=== PATIENT | male | born 1965 | race Caucasian/White ===

== ENCOUNTER 2024-07-12 08:07 | Outpatient (REF) | payer OTHER, SELFPAY ==
[2024-07-12 18:06] LABS: MANUAL DIFF FLAG NO
[2024-07-12 18:09] LABS: Basophils Percent Auto 0.6 % (0-2); Eosinophils Absolute Auto 0.1 X10*3/uL (0.0-0.4); Eosinophils Percent Auto 1.7 % (0-4); Hematocrit 40.1 % (42.0-52.0); Hemoglobin 13.3 g/dl (14.0-18.0); Imm Gran Abs Auto 0.02 X10*3/uL (0.00-0.03); Imm Gran Pct Auto 0.3 % (0.0-0.4); Lymphocytes Absolute Auto 0.6 X10*3/uL (1.2-4.9); Lymphocytes Percent Auto 9.9 % (20-40); Mean Corpuscular HGB Conc 33.2 g/dl (31.0-36.0); Mean Corpuscular Hemoglobin 31.6 pg (27.0-33.0); Mean Corpuscular Volume 95.2 fL (80.0-98.0); Mean Platelet Volume 10.2 fL (9.4-12.4); Monocytes Absolute Auto 0.5 X10*3/uL (0.1-1.2); Monocytes Percent Auto 7.6 % (2-11); Neutrophils Absolute Auto 5.1 x10*3/uL (2.0-8.3); Neutrophils Percent Auto 79.9 % (45-73); Platelet Count 212 X10*3/uL (160-400); Red Blood Count 4.21 X10*6/uL (4.60-5.80); Red Cell Distribution Width 13.2 % (11.0-16.0); White Blood Count 6.4 X10*3/uL (4.8-10.8)
[2024-07-12 18:27] LABS: Alanine Aminotransferase 22 U/L (0-40); Aspartate Amino Transferase 26 U/L (5-37); C Reactive Protein 0.12 mg/dL (< or = 0.50); Estimated Glomerular Filt Rate > 60
[2024-07-12 19:24] LABS: Erythrocyte Sedimentation Rate 6 MM/HR (0-15)
[2024-07-13 09:38] LABS: HBS Num1 0.01 mIU/mL (0-7.99); HBc Num1 0.07 S/CO (0.00-0.79); HBsAGNum1 0.43 S/CO (0.00-0.99); Hepatitis B Core Antibody Nonreactive (Nonreactive); Hepatitis B Surface Antigen Negative (Negative); ~Hepatitis B Surface Antibody NONREACTIVE (Nonreactive); ~Hepatitis C Antibody Nonreactive (Nonreactive)
[2024-07-15 14:33] LABS: TS Negative Control Passed; TS Panel A 0; TS Panel B 0; TS Positive Control Passed; TSpotTB Negative (Negative)
== END 2024-07-12 08:08 | disposition home or self-care (01) ==
LOC: HO.HKASLDS 08:07
PROVIDERS: Visit Provider Internal Medicine Rheumatology
DX: M35.3 Polymyalgia rheumatica (principal); Z79.60 Long term (current) use of unspecified immunomodulators and immunosuppressants
CPT/HCPCS: 36415; 82565; 84450; 84460; 85025; 85652; 86140; 86481; 86704; 86706; 86803; 87340

== ENCOUNTER 2024-07-12 08:07 | Outpatient (AMB) | payer OTHER, SELFPAY ==
--- NOTE | 2024-07-12 08:21 | MHC.OFFVIS ---
Vital Signs 07/12/24 08:22 Height 5 ft 11 in Weight 163 lb 2.273 oz BMI 22.8 BP 120/86 Blood Pressure Location Lt brachial Position Sitting Pulse 69 Pulse Source Pulse Oximeter Pulse Oximetry (%) 96 Oxygen Delivery Method Room Air Intake Visit Reasons: Arthralia Accompanied by: Self / Same As Patient Allergies No Known Allergies Allergy (Verified 07/12/24 08:24) HPI HPI Arthralia: Details: He is doing well. No new joint stiffness. No joint swelling. Denies trigger finger. He is on prednisone 5 mg daily, which he has been taking for a month. [facility] and reports labs were fine. He denies any hip pain. [facility] Medical History (Updated 07/12/24 @ 08:52 by Josiah Gibbons MD) Polymyalgia Arthropathy of left knee Surgical History (Updated 07/11/24 @ 08:42 by Mindy Guadarrama BEE WORKER) Hx of tonsillectomy Physical Exam Vital Signs: Last Vital Signs Pulse 69 07/12/24 08:22 BP 120/86 07/12/24 08:22 Pulse Ox 96 07/12/24 08:22 Oxygen Delivery Method Room Air 07/12/24 08:22 BMI result Body Mass Index 22.8 Const Other: General: Comfortable CVS: RRR Respiratory: clear to auscultation bilaterally. Good respiratory effort Skin: No lesions seen MSK: No tenderness of any joints. No synovitis. Good range of motion of upper extremities and lower extremities. Assessment & Plan Assessment & Plan (1) PMR (polymyalgia rheumatica): Comment: He had a relapse 2023 when methotrexate dose was reduced to 10 mg daily. He was treated with prednisone 10 mg daily taper 1 mg every month. He is currently on prednisone 5 mg daily. He is doing well without any symptoms. Code(s): M35.3 - Polymyalgia rheumatica Category: Medical Plan: Decrease prednisone 1 mg every month Labs for disease and drug monitoring ordered Continue methotrexate 12.5 mg once weekly Continue folic acid 1 mg daily Return to clinic in 3 months He will contact the office when he needs refills (2) Calcium pyrophosphate deposition disease (CPPD): Comment: Affecting left knee. Controlled on colchicine Code(s): M11.20 - Other chondrocalcinosis, unspecified site Category: Medical Plan: Continue colchicine 0.6 mg daily Continue methotrexate 12 point mg once weekly Return to clinic in 3 months He will contact office when he needs refills Orders: Orders Creatinine Today Z79.60 - predatory animal exterminator (current) use of unspecified immunomodulators and immunosuppressants Erythrocyte Sedimentation Rate Today M35.3 - Polymyalgia rheumatica Hepatitis B,C Profile Today M35.3 - Polymyalgia rheumatica T Spot TB Today M35.3 - Polymyalgia rheumatica Complete Blood Count Auto Diff Today Z79.60 - detention (current) use of unspecified immunomodulators and immunosuppressants Alanine Aminotransferase Today Z79.60 - detention (current) use of unspecified immunomodulators and immunosuppressants Aspartate Amino Transferase Today Z79.60 - detention (current) use of unspecified immunomodulators and immunosuppressants C Reactive Protein Today M35.3 - Polymyalgia rheumatica Medications: New prednisone Take 4 tablets daily for 1 month, 3 tablets daily for 1 month, 2 tablets daily for 1 month 1 mg PO DIRECTED 270 tabs 0RF Coding Level of Care Code Est Pt Level 4 (40070) Complex EM visit Add On G2211 Diagnoses PMR (polymyalgia rheumatica) M35.3 Calcium pyrophosphate deposition disease (CPPD) M11.20
[2024-07-12 08:22] VITALS: BP 120/86; PULSE 69; O2SAT 96; BMI 22.8
== END 2024-07-12 08:45 | disposition home or self-care (01) ==
PROVIDERS: Visit Provider Internal Medicine Rheumatology
DX: M35.3 Polymyalgia rheumatica (principal); M11.20 Other chondrocalcinosis, unspecified site
CPT/HCPCS: 99214

== ENCOUNTER 2024-09-15 10:19 | Outpatient (REF) | payer OTHER, SELFPAY ==
--- OUTSIDE RECORDS SUMMARY | 2024-09-15 12:48 | XMS_ITS | Clinical Summary ---
Author Organization [address] [place] [address] Address [address] [place] [address] Phone Care Team Providers Care Television News Reporter Name Role Phone Amrik Maynard MD Primary Care Provider [phone] Allergies No known active allergies Medications multivitamin tablet Take 1 tablet by mouth 1 (one) time each day. Active colchicine (COLCRYS) 0.6 mg tablet Take 1 tablet (0.6 mg total) by mouth 1 (one) time each day. Active carvediloL (COREG) 6.25 mg tablet Take 1 tablet (6.25 mg total) by mouth 2 (two) times a day with meals. Active omega 1-bmb-tdc-fish oil (Fish OiL) 1,000 (120-180) mg capsule Take 2 capsules (2,000 mg total) by mouth 1 (one) time each day. Active folic acid (FOLVITE) 1 mg tablet Take 1 tablet (1 mg total) by mouth 1 (one) time each day. Active methotrexate 2.5 mg tablet Take 3 tablets (7.5 mg total) by mouth 1 (one) time per week Follow directions carefully, and ask to explain any part you do not understand. Take exactly as directed. Active rosuvastatin (CRESTOR) 5 mg tablet Take 1 tablet (5 mg total) by mouth 1 (one) time each day. Active Encounters Date Type Department Care Team Description 07/08/2024 Telephone [address]astroenterology [address] [place] [phone] Ara Gunn MD SPECIAL PROCEDURE from Last 3 Months Social History Tobacco Use Types Packs/Day Years Used Date Smoking Tobacco: Never Assessed Sex and Gender Information Value Date Recorded Sex Assigned at Not on file Legal Sex Male 3:39 AM EST Gender Identity Not on file Sexual Orientation Not on file Plan of Treatment Upcoming Encounters Date Type Department Care Team (Late st Contact Info) Description 11/15/2024 1:30 PM EDT Appointment [facility] Endoscopy [address] [place] [phone] Kenrick Prater MD [address] [facility] [address] [place] [address] Health Maintenance Due Date Last Done Comments COVID-19 Vaccine (#1) 10/28/1968 DTaP,Tdap,and Td Vaccines (1 - Tdap) 10/28/1982 Pneumococcal Vaccine: 50+ Ye ars (1 of 1 - PCV) 10/28/2013 Zoster Vaccines (1 of 2) 10/28/2013 Influenza Vaccine (#1) 2024 Cholesterol Screening (Lipid Panel) 07/08/2024 Colorectal Cancer Screening: Colonoscopy 07/08/2024 Depression Screening 07/08/2024 HIV Screening 07/08/2024 Hepatitis C Screening 07/08/2024 Social Influencers of Health Screening 07/08/2024 RSV Immunization Patients 60 + Years Old (1 - 1-dose 75+ series) 10/28/2038 HIB Vaccines Aged Out No longer eligi ble based on patient's age to complete this topic HPV Vaccines Aged Out No longer eligi ble based on patient's age to complete this topic Hepatitis A Vaccines Aged Out No long er eligible based on patient's age to complete this topic Hepatitis B Vaccines Aged Out No long er eligible based on patient's age to complete this topic IPV Vaccines Aged Out No longer eligi ble based on patient's age to complete this topic MMR Vaccines Aged Out No longer eligi ble based on patient's age to complete this topic Meningococcal ACWY Vaccine Aged Out N o longer eligible based on patient's age to complete this topic Meningococcal B Vacine Aged Out No lo nger eligible based on patient's age to complete this topic Pneumococcal Vaccine: Pediat rics (0 to 5 Years) and At-Risk Patients (6 to 64 Years) Aged Out No longer eligible b ased on patient's age to complete this topic RSV Immunization Patients Un humberto 20 months Aged Out No longer eligible b ased on patient's age to complete this topic Varicella Vaccines Aged Out No longer eligible based on patient's age to complete this topic Insurance [employer] Care Teams Television News Reporter Relationship Specialty Start Date End Date Amrik Maynard MD [address] [place] [address] PCP - General Internal Medicine 05/24/19
[2024-09-15 18:02] LABS: C Reactive Protein 0.93 mg/dL (< or = 0.50)
[2024-09-15 18:52] LABS: Erythrocyte Sedimentation Rate 12 MM/HR (0-15)
== END 2024-09-15 10:20 | disposition home or self-care (01) ==
LOC: HO.HKASLDS 10:19
PROVIDERS: Visit Provider Internal Medicine Rheumatology
DX: M35.3 Polymyalgia rheumatica (principal)
CPT/HCPCS: 36415; 85652; 86140

== ENCOUNTER 2024-10-11 08:15 | Outpatient (AMB) | payer OTHER, SELFPAY ==
--- NOTE | 2024-10-11 08:18 | A.OFFVIS_ITS ---
Vital Signs 10/11/24 08:20 Height 5 ft 11 in Weight 167 lb 1.766 oz BMI 23.3 BP 122/84 Blood Pressure Location Lt brachial Position Sitting Pulse 76 Pulse Source Pulse Oximeter Pulse Oximetry (%) 98 Oxygen Delivery Method Room Air Intake Visit Reasons: 3 mnts Intake Note: Patient present today for Arthralgia. Allergies No Known Allergies Allergy (Verified 10/11/24 08:19) HPI HPI 3 mnts: Details: He started experiencing right upper arm pain that kept him up at night. Since increasing prednisone from 3 mg daily to 8 mg daily most of the pain has subsided. His granddaughter had influenza a and he had mild URI symptoms. Denies GCA symptoms, back pain, thigh pain, hip pain, constitutional symptoms. He feels well and he is able to return back to his exercise routine at the gym. COUNTS INCLUDE 234 BEDS AT THE [facility] Medical History Polymyalgia Arthropathy of left knee Surgical History Hx of tonsillectomy Review of Systems Const All systems reviewed & are unremarkable except as noted in HPI and below Physical Exam Vital Signs: Last Vital Signs Pulse 76 10/11/24 08:20 BP 122/84 10/11/24 08:20 Pulse Ox 98 10/11/24 08:20 Oxygen Delivery Method Room Air 10/11/24 08:20 BMI result Body Mass Index 23.3 Const Other: General: Comfortable CVS: RRR Respiratory: clear to auscultation bilaterally. Good respiratory effort Skin: No lesions seen MSK: No tenderness of any joints. No synovitis. Tender right biceps muscle and tendon. Normal range of motion of upper extremities and lower extremities. Assessment & Plan Assessment & Plan (1) PMR (polymyalgia rheumatica): Comment: When prednisone was reduced to 3 mg daily he had relapse with right biceps tendon pain and mild elevation in CRP. He had URI prior to onset of symptoms, which may have triggered PMR. He has minimal residual pain that is tolerable. I am checking inflammatory markers this visit. Rheumatology history: Diagnosed PMR 04/14/2018 with prednisone tapered off 08/2019. He had relapsed while on low-dose prednisone 10 mg daily. During PMR management he active pseudogout affecting left knee and was started on colchicine and methotrexate 12.5 mg once weekly. In 2023 methotrexate dose was slowly reduced to 7.5 mg once weekly and he relapsed with PMR and was restarted on prednisone 01/2024. Code(s): M35.3 - Polymyalgia rheumatica Category: Medical Plan: Continue prednisone 8 mg daily until ESR and CRP results are back. We will communicate with patient about inflammatory marker results and next steps with prednisone Continue methotrexate 15 mg once weekly Continue folic acid 1 mg daily Labs for drug monitoring on high-risk medication due today Return to clinic in 3 months (2) Calcium pyrophosphate deposition disease (CPPD): Comment: Affecting left knee. Controlled on colchicine Code(s): M11.20 - Other chondrocalcinosis, unspecified site Category: Medical Plan: Continue colchicine 0.6 mg daily Continue methotrexate 12.5 mg once weekly Continue folic acid 1 mg daily Labs for drug monitoring on high-risk medication due Return to clinic in 3 months Orders: Orders Erythrocyte Sedimentation Rate Today Z79.899 - Other correction (current) drug therapy Alanine Aminotransferase Today Z79.60 - director long term care (current) use of unspecified immunomodulators and immunosuppressants Aspartate Amino Transferase Today Z79.60 - director long term care (current) use of unspecified immunomodulators and immunosuppressants Complete Blood Count Auto Diff Today Z79.60 - director long term care (current) use of unspecified immunomodulators and immunosuppressants Creatinine Today Z79.60 - director long term care (current) use of unspecified immunomodulators and immunosuppressants C Reactive Protein Today M35.3 - Polymyalgia rheumatica Medications: Refilled folic acid 1 mg PO DAILY 90 tabs 3RF Coding Level of Care Code Est Pt Level 4 (26582) Complex EM visit Add On G2211 Diagnoses PMR (polymyalgia rheumatica) M35.3 Calcium pyrophosphate deposition disease (CPPD) M11.20
[2024-10-11 08:20] VITALS: BP 122/84; PULSE 76; O2SAT 98; BMI 23.3
--- OUTSIDE RECORDS SUMMARY | 2024-10-11 08:29 | XMS_ITS | Clinical Summary ---
Author Organization [address] [facility] Address [address] [place] [address] Phone Care Team Providers Care Tree Feller Name Role Phone Amrik Maynard MD Primary Care Provider [phone] Allergies No known active allergies Medications multivitamin tablet Take 1 tablet by mouth 1 (one) time each day. Active colchicine (COLCRYS) 0.6 mg tablet Take 1 tablet (0.6 mg total) by mouth 1 (one) time each day. Active carvediloL (COREG) 6.25 mg tablet Take 1 tablet (6.25 mg total) by mouth 2 (two) times a day with meals. Active omega 3-iop-yau-fish oil (Fish OiL) 1,000 (120-180) mg capsule [...] Encounters Date Type Department Care Team Description 09/27/2024 Lab Requisition [facility] [address] [facility] [place] [phone] González Cerrato MD Elevated prostate specific antigen (PSA) from Last 3 Months Social History Tobacco Use Types Packs/Day Years Used Date Smoking Tobacco: Never Assessed Sex and Gender Information Value Date Recorded Sex Assigned at Not on file Legal Sex Male 3:39 AM EST Gender Identity Not on file Sexual Orientation Not on file Plan of Treatment Upcoming Encounters Date Type Department Care Team ([facility] st Contact Info) Description 11/15/2024 1:30 PM EDT Appointment [facility] Endoscopy [address] [place] [phone] Kenrick Prater MD 175 [facility] [address] [place] [address] Health Maintenance Due Date Last Done Comments [...] Influencers of Health Screening 07/08/2024 RSV Immunization Adult Patie nts (1 - 1-dose 75+ series) 10/28/2038 HIB [...] age to complete this topic Meningococcal B Vaccine Aged Out No l onger eligible based on patient's age to complete [...] on patient's age to complete this topic Procedures Procedure Name Priority Date/Time Associated Diagnosis Comments AP OUTSIDE CONSULT Routine 09/26/2024 Elevated prostate specific antigen (PSA) from Last 3 Months Results * Anatomic pathology outside consult (09/26/2024) Final Diagnosis A. Prostate, Left [place] Biopsy: Acinar adenocarcinoma, conventional (usual) type, Francisco score 3 + 3 = 6 (Grade group 1). The carcinoma involves approximately 25-30% of the tissue submitted for review and spans approximately 3-4 mm in greatest dimension in a single core. B. Prostate, Left Lateral [place] Biopsy: Acinar adenocarcinoma, conventional (usual) type, Willard score 3 + 3 = 6 (Grade group 1). The carcinoma involves 30-35% of the tissue submitted for review and spans approximately 4 mm in greatest dimension in a single core. Perineural invasion is present. C. Prostate, Left Middle Middle Biopsy: Acinar adenocarcinoma, conventional (usual) type, Willard score 3 + 3 = 6 (Grade group 1). The carcinoma involves 50% of the tissue submitted for review and spans approximately 8 mm in greatest dimension in a single core (discontinuous foci). Perineural invasion is present. D. Prostate, Left Lateral Middle Biopsy: Acinar adenocarcinoma, conventional (usual) type, Francisco score 3 + 4 = 7 (Grade group 2). Willard pattern 4 comprises approximately 10% of the carcinoma including few cribriform glands. The carcinoma involves 30% of the tissue submitted for review and spans approximately 3 mm in greatest dimension in a single core. Prostatic intraepithelial neoplasia, high grade (HG PIN). Note: A multiplex immunohistochemical study including AMACR, high molecular weight cytokeratin and p63 was performed and shows that the glands of interest exhibit apical granular cytoplasmic expression of AMACR and lack an associated basal cell layer, supporting a diagnosis of prostatic adenocarcinoma. The immunohistochemical study also highlights few cribriform glands, supporting a component of Francisco pattern 4. E. Prostate, Left Middle Base Biopsy: Acinar adenocarcinoma, conventional (usual) type, Francisco score 3 + 4 = 7 (Grade group 2). Willard pattern 4 comprises approximately 20% of the carcinoma including a rare cribriform gland. The carcinoma involves 40-45% of the tissue submitted for review and spans approximately 8 mm in greatest dimension in a single core. Prostatic intraepithelial neoplasia, high grade (HG PIN). Note: A multiplex immunohistochemical study including AMACR, high molecular weight cytokeratin and p63 was performed and shows that the glands of interest exhibit apical granular cytoplasmic expression of AMACR and lack an associated basal cell layer, supporting a diagnosis of prostatic adenocarcinoma. The immunohistochemical study also highlights few glands with cribriform spaces and glomeruloid glands, supporting a component of Willard pattern 4. F. Prostate, Left Lateral Base Biopsy: Acinar adenocarcinoma, conventional (usual) type, Willard score 3 + 4 = 7 (Grade group 2). Francisco pattern 4 comprises approximately 20% of the carcinoma including rare cribriform glands. The carcinoma involves 30% of the tissue submitted for review and spans approximately 3-4 mm in greatest dimension in a single core. Intraductal carcinoma of the prostate (IDC-P). Note: A multiplex immunohistochemical study including AMACR, high molecular weight cytokeratin and p63 was performed and shows that the glands of interest exhibit apical granular cytoplasmic expression of AMACR and lack an associated basal cell layer, supporting a diagnosis of prostatic adenocarcinoma. The immunohistochemical study also highlights few glands with cribriform spaces and glomeruloid glands, supporting a component of Willard pattern 4. A large, expanded gland with increased cellularity, cytologic atypia and focal necrosis is noted, which shows an associated basal cell layer, supporting a diagnosis of IDC-P. G. Prostate, Left Peripheral Zone Mid Biopsy: Acinar adenocarcinoma, conventional (usual) type, Willard score 3 + 3 = 6 (Grade group 1). The carcinoma involves two of three tissue cores, involves approximately 25% of the tissue submitted for review and spans approximately 3 mm in greatest dimension in a single core. H. Prostate, Right [place] Biopsy: Benign prostate tissue. I. Prostate, Right Lateral [place] Biopsy: Benign prostate tissue. J. Prostate, Right Middle Middle Biopsy: Benign prostate tissue. K. Prostate, Right Lateral Middle Biopsy: Benign prostate tissue. L. Prostate, Right Middle Base Biopsy: Acinar adenocarcinoma, conventional (usual) type, Francisco score 3 + 3 = 6 (Grade group 1). The carcinoma involves less than 10% of the tissue submitted for review and spans less than 1 mm in greatest dimension in a single core. M. Prostate, Right Lateral Base Biopsy: Benign prostate tissue. 5 4:07 PM EDT [facility] Clinical Information Elevated PSA PSA: 4.3 (07/08/24) [id number] 5 4:07 PM EDT [facility] Gross Description A. Prostate, Left [place] Biopsy: Received, properly labeled, are two H and E stained slides and two unstained slides. B. Prostate, Left Lateral [place] Biopsy: Received, properly labeled, are two H and E stained slides and two unstained slides. C. Prostate, Left Middle Middle Biopsy: Received, properly labeled, are two H and E stained slides and two unstained slides. D. Prostate, Left Lateral Middle Biopsy: Received, properly labeled, are two H and E stained slides and two unstained slides. E. Prostate, Left Middle Base Biopsy: Received, properly labeled, are two H and E stained slides and two unstained slides. F. Prostate, Left Lateral Base Biopsy: Received, properly labeled, are two H and E stained slides and two unstained slides. G. Prostate, Left Peripheral Zone Mid Biopsy: Received, properly labeled, are two H and E stained slides and two unstained slides. H. Prostate, Right [place] Biopsy: Received, properly labeled, are two H and E stained slides and two unstained slides. I. Prostate, Right Lateral [place] Biopsy: Received, properly labeled, are two H and E stained slides and two unstained slides. J. Prostate, Right Middle Middle Biopsy: Received, properly labeled, are two H and E stained slides and two unstained slides. K. Prostate, Right Lateral Middle Biopsy: Received, properly labeled, are two H and E stained slides and two unstained slides. L. Prostate, Right Middle Base Biopsy: Received, properly labeled, are two H and E stained slides and two unstained slides. M. Prostate, Right Lateral Base Biopsy: Received, properly labeled, are two H and E stained slides and two unstained slides. /al 5 4:07 PM EDT [facility] ([facility] Disclaimer Unless otherwise specified, all tissue is 10% NB formalin fixed and paraffin embedded. Technical pathology services provided by [facility] at [address] [place] [address] [address], [place] [address] (CLIA #[id number]/Mary Petersen MD, Binitrotoluene Operator) 4:07 PM EDT [facility]) [facility] Tissue Prostate / Unknown 09/26/20242024 12:06 PM EDT Tissue specimen (specimen) Prostate / Unknown 09/26/2024 09/27/2024 12 :09 PM EDT Tissue specimen (specimen) Prostate / Unknown 09/26/2024 09/27/2024 12 :09 PM EDT Tissue specimen (specimen) Prostate / Unknown 09/26/2024 09/27/2024 12 :09 PM EDT Tissue specimen (specimen) Prostate / Unknown 09/26/2024 09/27/2024 12 :09 PM EDT Tissue specimen (specimen) Prostate / Unknown 09/26/2024 09/27/2024 12 :09 PM EDT Tissue specimen (specimen) Prostate / Unknown 09/26/2024 09/27/2024 12 :09 PM EDT Tissue specimen (specimen) Prostate / Unknown 09/26/2024 09/27/2024 12 :09 PM EDT Tissue specimen (specimen) Prostate / Unknown 09/26/2024 09/27/2024 12 :09 PM EDT Tissue specimen (specimen) Prostate / Unknown 09/26/2024 09/27/2024 12 :09 PM EDT Tissue specimen (specimen) Prostate / Unknown 09/26/2024 09/27/2024 12 :09 PM EDT Tissue specimen (specimen) Prostate / Unknown 09/26/2024 09/27/2024 12 :09 PM EDT Tissue specimen (specimen) Prostate / Unknown 09/26/2024 09/27/2024 12 :09 PM EDT us González Cerrato MD LAB PATHOLOGY ORDERABLES Final R esult [facility] ([facility]) [facility] [address] [place] [address], [place] [phone] from Last 3 Months Insurance [employer] Care Teams Tree Feller Relationship Specialty Start Date End Date Amrik Maynard MD [address] [place] [phone] PCP - General Internal Medicine 05/24/19
--- OUTSIDE RECORDS SUMMARY | 2024-10-11 08:29 | XMS_ITS | Encounter Summary ---
Author Organization [facility] Address [address] [place] [address] Care Team Providers Care Forming Machine Upkeep Mechanic Name Role Phone Amrik Maynard MD Primary Care Provider [phone] Encounter Details Date Type Department Care Team (Late Contact Info) Description 09/27/2024 Lab Requisition [facility] - Main Lab 299 [facility] [place] [address] González Cerrato MD 100 [facility] 120 [place] [address] Elevated prostate specific antigen (PSA) Social History Tobacco Use Types Packs/Day Years Used Date Smoking Tobacco: Never Assessed Sex and Gender Information Value Date Recorded Sex Assigned at Not on file Legal Sex Male 3:39 AM EST Gender Identity Not on file Sexual Orientation Not on file documented as of this encounter Plan of Treatment Upcoming Encounters Date Type Department Care Team (Late Contact Info) Description 11/15/2024 1:30 PM EDT Appointment [facility] Endoscopy [address] [place] [phone] Kenrick Prater MD 175 [facility] 200 [place] [address] documented as of this encounter Procedures Procedure Name Priority Date/Time Associated Diagnosis Comments AP OUTSIDE CONSULT Routine 09/26/2024 Elevated prostate specific antigen (PSA) documented in this encounter Results * Anatomic pathology outside consult (09/26/2024) Final Diagnosis A. Prostate, Left Middle [place] Biopsy: Acinar adenocarcinoma, conventional (usual) type, Francisco score 3 + 3 = 6 (Grade group 1). The carcinoma involves approximately 25-30% of the tissue submitted for review and spans approximately 3-4 mm in greatest dimension in a single core. B. Prostate, Left Lateral [place] Biopsy: Acinar adenocarcinoma, conventional (usual) type, Francisco score 3 + 3 = 6 (Grade group 1). The carcinoma involves 30-35% of the tissue submitted for review and spans approximately 4 mm in greatest dimension in a single core. Perineural invasion is present. C. Prostate, Left Middle [place] Biopsy: Acinar adenocarcinoma, conventional (usual) type, [place] score 3 + 3 = 6 (Grade group 1). The carcinoma involves 50% of the tissue submitted for review and spans approximately 8 mm in greatest dimension in a single core (discontinuous foci). Perineural invasion is present. D. Prostate, Left Lateral [place] Biopsy: Acinar adenocarcinoma, conventional (usual) type, [place] score 3 + 4 = 7 (Grade group 2). [place] pattern 4 comprises approximately 10% of the [...] few cribriform glands, supporting a component of [place] pattern 4. E. Prostate, Left Middle [place] Biopsy: Acinar adenocarcinoma, conventional (usual) type, [place] score 3 + 4 = 7 (Grade group 2). [place] pattern 4 comprises approximately 20% of the [...] and glomeruloid glands, supporting a component of [place] pattern 4. F. Prostate, Left Lateral [place] Biopsy: Acinar adenocarcinoma, conventional (usual) type, [place] score 3 + 4 = 7 (Grade group 2). [place] pattern 4 comprises approximately 20% of the [...] and glomeruloid glands, supporting a component of Francisco pattern 4. A large, expanded gland with increased cellularity, cytologic atypia and focal necrosis is noted, which shows an associated basal cell layer, supporting a diagnosis of IDC-P. G. Prostate, Left Peripheral Zone Mid Biopsy: Acinar adenocarcinoma, conventional (usual) type, Francisco score 3 + 3 = 6 (Grade group 1). The carcinoma involves two of three tissue cores, involves approximately 25% of the tissue submitted for review and spans approximately 3 mm in greatest dimension in a single core. H. Prostate, Right Middle [place] Biopsy: Benign prostate tissue. I. Prostate, Right Lateral [place] Biopsy: Benign prostate tissue. J. Prostate, Right [...] Benign prostate tissue. 5 4:07 PM EDT [facility] ([facility]) [facility] Clinical Information Elevated PSA PSA: 4.3 (07/08/24) [id number] 5 4:07 PM EDT [facility] ([facility]) [facility] Gross Description A. Prostate, Left Middle [place] Biopsy: Received, properly labeled, are two H and E stained slides and two unstained slides. B. Prostate, Left Lateral [place] Biopsy: Received, properly labeled, are two H [...] two unstained slides. H. Prostate, Right Middle [place] Biopsy: Received, properly labeled, are two H and E stained slides and two unstained slides. I. Prostate, Right Lateral [place] Biopsy: Received, properly labeled, are two H [...] unstained slides. /al 5 4:07 PM EDT [facility] Disclaimer Unless otherwise specified, all tissue is 10% NB formalin fixed and paraffin embedded. Technical pathology services provided by [facility]rology at [address] [place] [address] [address], [place] [address] (CLIA #[id number]/Mary Petersen MD, Life Skills Coach) 5 4:07 PM EDT [facility] Tissue Prostate / Unknown 09/26/20242024 12:06 [...] MD LAB PATHOLOGY ORDERABLES Final R esult [facility] ([facility]) [facility] [address] [place] [address], documented in this encounter Visit Diagnoses Diagnosis Elevated prostate specific antigen (PSA) documented in this encounter Care Teams Forming Machine Upkeep Mechanic Relationship Specialty Start Date End Date Amrik Maynard MD [address] [place] [address] PCP - General Internal Medicine 05/24/19 documented as of this encounter
== END 2024-10-11 09:56 | disposition home or self-care (01) ==
LOC: HO.RHES 08:15
PROVIDERS: PCP Nurse Practitioner Gerontology; Visit Provider Internal Medicine Rheumatology
DX: M35.3 Polymyalgia rheumatica (principal); M11.20 Other chondrocalcinosis, unspecified site
CPT/HCPCS: 99214

== ENCOUNTER 2024-10-11 08:15 | Outpatient (REF) | payer OTHER, SELFPAY ==
--- OUTSIDE RECORDS SUMMARY | 2024-10-11 09:25 | XMS_ITS | Encounter Summary ---
Author Organization [facility] Address [address] [place] [address] Care Team Providers Care Court Usher Name Role Phone Amrik Maynard MD Primary Care Provider [phone]- [phone] Encounter Details Date Type Department Care Team (Late Contact Info) Description 09/27/2024 Lab Requisition [facility] - Main Lab 299 [facility] [place] [address] González Cerrato MD 100 [facility] 120 [place] [address] Elevated prostate specific antigen (PSA) Social History [...] Info) Description 11/15/2024 1:30 PM EDT Appointment [facility] Endoscopy [address] [place] [phone] Kenrick Prater MD 175 [facility] 200 [place] [address] documented as of this encounter Procedures Procedure Name Priority Date/Time Associated Diagnosis Comments AP OUTSIDE CONSULT Routine 09/26/2024 Elevated prostate specific antigen (PSA) documented in this encounter Results * Anatomic pathology outside consult (09/26/2024) Final Diagnosis A. Prostate, Left Middle [place] Biopsy: Acinar adenocarcinoma, conventional (usual) type, Francisco score 3 + 3 = 6 (Grade group 1). The carcinoma involves approximately 25-30% of the tissue submitted for review and spans approximately 3-4 mm in greatest dimension in a single core. B. Prostate, Left Lateral [place] Biopsy: Acinar adenocarcinoma, conventional (usual) type, Francisco score 3 + 3 = 6 (Grade group 1). The carcinoma involves 30-35% of the tissue submitted for review and spans approximately 4 mm in greatest dimension in a single core. Perineural invasion is present. C. Prostate, Left Middle Middle Biopsy: Acinar adenocarcinoma, conventional (usual) type, [place] score 3 + 3 = 6 (Grade group 1). The carcinoma involves 50% of the tissue submitted for review and spans approximately 8 mm in greatest dimension in a single core (discontinuous foci). Perineural invasion is present. D. Prostate, Left Lateral Middle Biopsy: Acinar adenocarcinoma, conventional (usual) type, [place] score 3 + 4 = 7 (Grade group 2). [place] pattern 4 comprises approximately 10% of the [...] few cribriform glands, supporting a component of [place] pattern 4. E. Prostate, Left Middle [place] Biopsy: Acinar adenocarcinoma, conventional (usual) type, [place] score 3 + 4 = 7 (Grade group 2). [place] pattern 4 comprises approximately 20% of the [...] and glomeruloid glands, supporting a component of [place] pattern 4. F. Prostate, Left Lateral [place] Biopsy: Acinar adenocarcinoma, conventional (usual) type, [place] score 3 + 4 = 7 (Grade group 2). [place] pattern 4 comprises approximately 20% of the [...] a single core. H. Prostate, Right Middle [place] Biopsy: Benign prostate tissue. I. Prostate, Right Lateral [place] Biopsy: Benign prostate tissue. J. Prostate, Right [...] Benign prostate tissue. 5 4:07 PM EDT [facility] ([facility]) [facility] Clinical Information Elevated PSA PSA: 4.3 (07/08/24) [id number] 5 4:07 PM EDT [facility] ([facility]) [facility] Gross Description A. Prostate, Left Middle [place] Biopsy: Received, properly labeled, are two H and E stained slides and two unstained slides. B. Prostate, Left Lateral [place] Biopsy: Received, properly labeled, are two H [...] two unstained slides. H. Prostate, Right Middle [place] Biopsy: Received, properly labeled, are two H and E stained slides and two unstained slides. I. Prostate, Right Lateral [place] Biopsy: Received, properly labeled, are two H [...] unstained slides. /al 5 4:[address] [facility] Disclaimer Unless otherwise specified, all tissue is 10% NB formalin fixed and paraffin embedded. Technical pathology services provided by [facility] at [address] [place] [address] [address], [place] [address] (CLIA #[id number]/Mary Petersen MD, Wet Process Assistant Head Miller) 5 4:[address] [facility] Tissue Prostate / Unknown 09/26/20242024 [...] MD LAB PATHOLOGY ORDERABLES Final R esult [facility] ([facility]) [facility] [address] [place] [address], documented in this encounter Visit Diagnoses Diagnosis Elevated prostate specific antigen (PSA) documented in this encounter Care Teams Court Usher Relationship Specialty Start Date End Date Amrik Maynard MD [address] [place] [address] PCP - General Internal Medicine 05/24/19 documented as of this encounter
--- OUTSIDE RECORDS SUMMARY | 2024-10-11 09:25 | XMS_ITS | Clinical Summary ---
Author Organization 175 [facility] Address [address] [place] [address] Phone Care Team Providers Care Celery Wrapper Name Role Phone Amrik Maynard MD Primary Care Provider [phone]- [phone] Allergies No known active allergies Medications multivitamin tablet Take 1 tablet by mouth 1 (one) time each day. Active colchicine (COLCRYS) 0.6 mg tablet Take 1 tablet (0.6 mg total) by mouth 1 (one) time each day. Active carvediloL (COREG) 6.25 mg tablet Take 1 tablet (6.25 mg total) by mouth 2 (two) times a day with meals. Active omega 2-nie-rir-fish oil (Fish OiL) 1,000 (120-180) mg capsule [...] Department Care Team Description 09/27/2024 Lab Requisition [facility] - Main Lab 299 [facility] [place] [address] González Cerrato MD Elevated prostate [...] Upcoming Encounters Date Type Department Care Team ([facility] st Contact Info) Description 11/15/2024 1:30 PM EDT Appointment [facility] Endoscopy [address] [place] [phone] Kenrick Prater MD 175 [facility] [place] [address] [place] [address] Health Maintenance Due Date Last Done Comments [...] (09/26/2024) Final Diagnosis A. Prostate, Left Middle [place] Biopsy: Acinar adenocarcinoma, conventional (usual) type, Francisco score 3 + 3 = 6 (Grade group 1). The carcinoma involves approximately 25-30% of the tissue submitted for review and spans approximately 3-4 mm in greatest dimension in a single core. B. Prostate, Left Lateral [place] Biopsy: Acinar adenocarcinoma, conventional (usual) type, [place] score 3 + 3 = 6 (Grade group 1). The carcinoma involves 30-35% of the tissue submitted for review and spans approximately 4 mm in greatest dimension in a single core. Perineural invasion is present. C. Prostate, Left Middle [place] Biopsy: Acinar adenocarcinoma, conventional (usual) type, [place] score 3 + 3 = 6 (Grade group 1). The carcinoma involves 50% of the tissue submitted for review and spans approximately 8 mm in greatest dimension in a single core (discontinuous foci). Perineural invasion is present. D. Prostate, Left Lateral [place] Biopsy: Acinar adenocarcinoma, conventional (usual) type, Francisco score 3 + 4 = 7 (Grade group 2). [place] pattern 4 comprises approximately 10% of the [...] + 4 = 7 (Grade group 2). [place] pattern 4 comprises approximately 20% of the [...] and glomeruloid glands, supporting a component of [place] pattern 4. F. Prostate, Left Lateral [place] Biopsy: Acinar adenocarcinoma, conventional (usual) type, [place] score 3 + 4 = 7 (Grade [...] and glomeruloid glands, supporting a component of [place] pattern 4. A large, expanded gland with increased cellularity, cytologic atypia and focal necrosis is noted, which shows an associated basal cell layer, supporting a diagnosis of IDC-P. G. Prostate, Left Peripheral Zone Mid Biopsy: Acinar adenocarcinoma, conventional (usual) type, [place] score 3 + 3 = 6 (Grade group 1). The carcinoma involves two of three tissue cores, involves approximately 25% of the tissue submitted for review and spans approximately 3 mm in greatest dimension in a single core. H. Prostate, Right Middle [place] Biopsy: Benign prostate tissue. I. Prostate, Right Lateral [place] Biopsy: Benign prostate tissue. J. Prostate, Right [...] Benign prostate tissue. 5 4:07 PM EDT [facility] Clinical Information Elevated PSA PSA: 4.3 (07/08/24) [id number] 5 4:07 PM EDT [facility] Gross Description A. Prostate, Left Middle [place] Biopsy: Received, properly labeled, are two H and E stained slides and two unstained slides. B. Prostate, Left Lateral [place] Biopsy: Received, properly labeled, are two H [...] two unstained slides. H. Prostate, Right Middle [place] Biopsy: Received, properly labeled, are two H and E stained slides and two unstained slides. I. Prostate, Right Lateral [place] Biopsy: Received, properly labeled, are two H [...] 5 4:07 PM EDT [facility] ([facility] Disclaimer Unless otherwise specified, all tissue is 10% NB formalin fixed and paraffin embedded. Technical pathology services provided by [facility] at [address] [place] [address] [address], [place] [address] (CLIA #[id number]/Mary Petersen MD, Dairy Helper) 4:07 PM EDT [facility]) [facility] Tissue Prostate / Unknown 09/26/20242024 12:06 [...] ORDERABLES Final R esult [facility] ([facility]) [facility] [address] [place] [address], [place] [phone] from Last 3 Months Insurance [employer] Care Teams Celery Wrapper Relationship Specialty Start Date End Date Amrik Maynard MD [address] [place] [address] PCP - General Internal Medicine 05/24/19
[2024-10-11 18:41] LABS: MANUAL DIFF FLAG NO
[2024-10-11 18:57] LABS: Basophils Percent Auto 0.4 % (0-2); Eosinophils Percent Auto 0.2 % (0-4); Hematocrit 38.9 % (42.0-52.0); Hemoglobin 12.7 g/dl (14.0-18.0); Imm Gran Abs Auto 0.04 X10*3/uL (0.00-0.03); Imm Gran Pct Auto 0.5 % (0.0-0.4); Lymphocytes Absolute Auto 0.7 X10*3/uL (1.2-4.9); Lymphocytes Percent Auto 8.7 % (20-40); Mean Corpuscular HGB Conc 32.6 g/dl (31.0-36.0); Mean Corpuscular Hemoglobin 30.8 pg (27.0-33.0); Mean Corpuscular Volume 94.2 fL (80.0-98.0); Mean Platelet Volume 10.2 fL (9.4-12.4); Monocytes Absolute Auto 0.4 X10*3/uL (0.1-1.2); Monocytes Percent Auto 4.5 % (2-11); Neutrophils Absolute Auto 7.1 x10*3/uL (2.0-8.3); Neutrophils Percent Auto 85.7 % (45-73); Platelet Count 220 X10*3/uL (160-400); Red Blood Count 4.13 X10*6/uL (4.60-5.80); Red Cell Distribution Width 12.9 % (11.0-16.0); White Blood Count 8.2 X10*3/uL (4.8-10.8)
[2024-10-11 19:05] LABS: Alanine Aminotransferase 27 U/L (0-40); Aspartate Amino Transferase 30 U/L (5-37); C Reactive Protein 0.18 mg/dL (< or = 0.50); Estimated Glomerular Filt Rate > 60
[2024-10-11 19:38] LABS: Erythrocyte Sedimentation Rate 7 MM/HR (0-15)
== END 2024-10-11 08:16 | disposition home or self-care (01) ==
LOC: HO.HKASLDS 08:15
PROVIDERS: PCP Nurse Practitioner Gerontology; Visit Provider Internal Medicine Rheumatology
DX: M35.3 Polymyalgia rheumatica (principal); Z79.899 Other long term (current) drug therapy; Z79.60 Long term (current) use of unspecified immunomodulators and immunosuppressants
CPT/HCPCS: 36415; 82565; 84450; 84460; 85025; 85652; 86140

== ENCOUNTER 2025-01-12 08:20 | Outpatient (AMB) | payer OTHER, SELFPAY ==
--- OUTSIDE RECORDS SUMMARY | 2025-01-12 08:28 | XMS_ITS | Encounter Summary ---
Author Organization [facility] Address [address] [place] [address] Care Team Providers Care Dyslexia Teacher Name Role Phone Sailaja Blackman WILLARD Primary Care Provider [phone] Encounter Details Date Type Department Care Team (Late st Contact Info) Description 09/27/2024 Lab Requisition [facility] - Main Lab 299 [facility] [place] [address] González Cerrato MD [address] [place] [address] [place] [address] Elevated prostate specific antigen (PSA) Social History Tobacco Use Types Packs/Day Years Used Date Smoking Tobacco: Never Assessed Sex and Gender Information Value Date Recorded Sex Assigned at Male 11/09/2024 12:07 PM EDT Legal Sex Male 3:39 AM EST Gender Identity Male 11/09/2024 12:07 PM EDT Sexual Orientation Straight 11/09/2024 12 :07 PM EDT documented as of this encounter Plan of Treatment Not on file documented as of this encounter Procedures Procedure Name Priority Date/Time Associated Diagnosis Comments AP OUTSIDE CONSULT Routine 09/26/2024 Elevated prostate specific antigen (PSA) documented in this encounter Results * Anatomic pathology outside consult (09/26/2024) Final Diagnosis A. Prostate, Left Middle [place] Biopsy: Acinar adenocarcinoma, conventional (usual) type, Francisco score 3 + 3 = 6 (Grade group 1). The carcinoma involves approximately 25-30% of the tissue submitted for review and spans approximately 3-4 mm in greatest dimension in a single core. B. Prostate, Left Lateral [place] Biopsy: Acinar adenocarcinoma, conventional (usual) type, Francisco [...] Middle Biopsy: Acinar adenocarcinoma, conventional (usual) type, [place] score 3 + 4 = 7 (Grade group 2). [place] pattern 4 comprises approximately 10% of the [...] Base Biopsy: Acinar adenocarcinoma, conventional (usual) type, [place] score 3 + 4 = 7 (Grade group 2). [place] pattern 4 comprises approximately 20% of the [...] and glomeruloid glands, supporting a component of [place] pattern 4. F. Prostate, Left Lateral [place] Biopsy: Acinar adenocarcinoma, conventional (usual) type, [place] score 3 + 4 = 7 (Grade group 2). [place] pattern 4 comprises approximately 20% of the [...] and glomeruloid glands, supporting a component of [place] pattern 4. A large, expanded gland with increased cellularity, cytologic atypia and focal necrosis is noted, which shows an associated basal cell layer, supporting a diagnosis of IDC-P. G. Prostate, Left Peripheral Zone [place] Biopsy: Acinar adenocarcinoma, conventional (usual) type, [place] score 3 + 3 = 6 (Grade group 1). The carcinoma involves two of three tissue cores, involves approximately 25% of the tissue submitted for review and spans approximately 3 mm in greatest dimension in a single core. H. Prostate, Right Middle [place] Biopsy: Benign prostate tissue. I. Prostate, Right Lateral [place] Biopsy: Benign prostate tissue. J. Prostate, Right Middle [place] Biopsy: Benign prostate tissue. K. Prostate, Right Lateral [place] Biopsy: Benign prostate tissue. L. Prostate, Right Middle [place] Biopsy: Acinar adenocarcinoma, conventional (usual) type, [place] score 3 + 3 = 6 (Grade group 1). The carcinoma involves less than 10% of the tissue submitted for review and spans less than 1 mm in greatest dimension in a single core. M. Prostate, Right Lateral [place] Biopsy: Benign prostate tissue. 5 4:07 PM EDT [facility] Clinical Information Elevated PSA PSA: 4.3 (07/08/24) [id number] 5 4:07 PM EDT [facility]) [facility] Gross Description A. Prostate, Left Middle [place] Biopsy: Received, properly labeled, are two H and E stained slides and two unstained slides. B. Prostate, Left Lateral [place] Biopsy: Received, properly labeled, are two H [...] two unstained slides. H. Prostate, Right Middle [place] Biopsy: Received, properly labeled, are two H and E stained slides and two unstained slides. I. Prostate, Right Lateral [place] Biopsy: Received, properly labeled, are two H [...] unstained slides. /al 5 4:07 PM EDT [facility] Disclaimer Unless otherwise specified, all tissue is 10% NB formalin fixed and paraffin embedded. Technical pathology services provided by [facility] at [address] [place] [address] [address], [place] [address] (CLIA #[id number]/Mary Petersen MD, Inside Channel Account Manager) 5 4:07 PM EDT [facility] Tissue Prostate / Unknown 09/26/20242024 [...] MD LAB PATHOLOGY ORDERABLES Final R esult [facility] [address] [place] [address], documented in this encounter Visit Diagnoses Diagnosis Elevated prostate specific antigen (PSA) documented in this encounter Care Teams Dyslexia Teacher Relationship Specialty Start Date End Date Sailaja Blackman NP [address] [facility] [address] PCP - General Internal Medicine 11/10/24 documented as of this encounter
--- NOTE | 2025-01-12 08:29 | A.OFFVIS_ITS ---
Vital Signs 01/12/25 08:31 Height 5 ft 11 in Weight 161 lb 13.109 oz BMI 22.6 BP 110/70 Blood Pressure Location Rt brachial Position Sitting Pulse 72 Pulse Source Pulse Oximeter Pulse Oximetry (%) 100 Oxygen Delivery Method Room Air Intake Visit Reasons: 3 months Intake Note: Follow up appt for pmr Allergies No Known Allergies Allergy (Verified 01/12/25 08:32) HPI HPI 3 months: Details: He feels well. No joint stiffness. No shoulder pain, hip pain thigh pain. He denies GCA symptoms. No recent infections. He was diagnosed with prostate cancer stage II. He is thinking about having the prostate cancer removed rather than going through radiation. He will be following up with the [facility]. No specific recommendations of methotrexate were given to patient due to cancer diagnosis. [facility] Medical History (Updated 01/12/25 @ 08:49 by Josiah Gibbons MD) Prostate cancer Polymyalgia Arthropathy of left knee Surgical History Hx of tonsillectomy Physical Exam Vital Signs: Last Vital Signs Pulse 72 01/12/25 08:31 BMI result Body Mass Index 22.6 Const Other: General: Comfortable CVS: RRR Respiratory: clear to auscultation bilaterally. Good respiratory effort Skin: No lesions seen MSK: No tenderness of any joints. No synovitis. Normal range of motion of upper extremities and lower extremities. Assessment & Plan Assessment & Plan (1) PMR (polymyalgia rheumatica): Comment: Relapse disease. Currently controlled on slow taper of prednisone and methotrexate. He started prednisone 4 mg daily yesterday. He was recently diagnosed with stage II prostate cancer with plans to have prostatectomy. Rheumatology history: Diagnosed PMR 04/14/2018 with prednisone tapered off 08/2019. He had relapsed while on low-dose prednisone 10 mg daily. During PMR management he active pseudogout affecting left knee and was started on colchicine and methotrexate 12.5 mg once weekly. In 2023 methotrexate dose was slowly reduced to 7.5 mg once weekly and he relapsed with PMR and was restarted on prednisone 01/2024. Code(s): M35.3 - Polymyalgia rheumatica Category: Medical Plan: Continue prednisone 4 mg daily until inflammatory markers are checked. If inflammatory markers remain normal, I will decrease prednisone 1 mg every month Continue methotrexate 15 mg once weekly Continue folic acid 1 mg daily Labs for drug monitoring on high-risk medication due today He will contact [facility] to find out if he is okay to continue methotrexate while he is being treated for prostate cancer. Return to clinic in 3 months (2) Calcium pyrophosphate deposition disease (CPPD): Comment: Affecting left knee. Controlled on colchicine and methotrexate. Code(s): M11.20 - Other chondrocalcinosis, unspecified site Category: Medical Plan: Continue colchicine 0.6 mg daily Continue methotrexate 15 mg once weekly Continue folic acid 1 mg daily Labs for drug monitoring on high-risk medication due Return to clinic in 3 months (3) Other longterm (current) drug therapy: Code(s): Z79.899 - Other termite control technician (current) drug therapy Category: Medical Plan: See above Orders: Orders Aspartate Amino Transferase Today M11.20 - Other chondrocalcinosis, unspecified site, M35.3 - Polymyalgia rheumatica, Z79.899 - Other longterm (current) drug therapy Creatinine Today M11.20 - Other chondrocalcinosis, unspecified site, M35.3 - Polymyalgia rheumatica, Z79.899 - Other longterm (current) drug therapy Erythrocyte Sedimentation Rate Today M11.20 - Other chondrocalcinosis, unspecified site, M35.3 - Polymyalgia rheumatica, Z79.899 - Other termite control technician (current) drug therapy Complete Blood Count Man Dif Today M11.20 - Other chondrocalcinosis, unspecified site, M35.3 - Polymyalgia rheumatica, Z79.899 - Other longterm (current) drug therapy Absolute Neutrophil Count Today M11.20 - Other chondrocalcinosis, unspecified site, M35.3 - Polymyalgia rheumatica, Z79.899 - Other longterm (current) drug therapy C Reactive Protein Today M11.20 - Other chondrocalcinosis, unspecified site, M35.3 - Polymyalgia rheumatica, Z79.899 - Other termite control technician (current) drug therapy Medications: Changed From methotrexate sodium 15 mg (6 x 2.5 mg) PO QWEEK 24 tabs 0RF To methotrexate sodium 15 mg (6 x 2.5 mg) PO QWEEK 72 tabs 0RF 12 weeks Coding Level of Care Code Est Pt Level 4 (63162) Complex EM visit Add On G2211 Diagnoses PMR (polymyalgia rheumatica) M35.3 Calcium pyrophosphate deposition disease (CPPD) M11.20 Other termite control technician (current) drug therapy Z79.891
[2025-01-12 08:31] VITALS: BP 110/70; PULSE 72; O2SAT 100; BMI 22.6
== END 2025-01-12 09:21 | disposition home or self-care (01) ==
LOC: HO.RHES 08:20
PROVIDERS: PCP Nurse Practitioner Gerontology; Visit Provider Internal Medicine Rheumatology
DX: M35.3 Polymyalgia rheumatica (principal); M11.20 Other chondrocalcinosis, unspecified site; Z79.899 Other long term (current) drug therapy
CPT/HCPCS: 99214

== ENCOUNTER 2025-01-12 08:20 | Outpatient (REF) | payer OTHER, SELFPAY ==
[2025-01-12 14:17] LABS: Baso%MD 0.4 %; Eos%MD 1.5 %; Hematocrit 39.4 % (42.0-52.0); Hemoglobin 13.1 g/dl (14.0-18.0); IG%MD 0.4 %; Lymph%MD 9.6 %; Mean Corpuscular HGB Conc 33.2 g/dl (31.0-36.0); Mean Corpuscular Hemoglobin 31.0 pg (27.0-33.0); Mean Corpuscular Volume 93.1 fL (80.0-98.0); Mono%MD 8.5 %; NRBC Abs Auto 0.000 X10*3/uL (0.0-0.012); NRBC Pct Auto 0.0 /100WBC (0.0-0.2); Neut%MD 79.6 %; Platelet Count 193 X10*3/uL (160-400); Red Blood Count 4.23 X10*6/uL (4.60-5.80); WBCANC 7.3 X10*3/uL; White Blood Count 7.3 X10*3/uL (4.8-10.8)
[2025-01-12 14:42] LABS: Aspartate Amino Transferase 29 U/L (5-37); Estimated Glomerular Filt Rate > 60
[2025-01-12 20:28] LABS: Band Neutrophils Percent 0 % (3-5); Eosinophils Absolute Manual 0.1 X10*3/uL (0.0-0.4); Eosinophils Percent Manual 1 % (0-4); Lymphocytes Absolute Manual 0.6 X10*3/uL (1.2-4.9); Lymphocytes Percent Manual 8 % (20-40); Monocytes Absolute Manual 0.4 X10*3/uL (0.1-1.2); Monocytes Percent Manual 6 % (2-11); Neutrophils Absolute Manual 6.2 X10*3/uL (2.0-8.3); Neutrophils Percent Manual 85 % (45-73); RBC Morphology NOTED; Toxic Granulation PRESENT
== END 2025-01-12 08:21 | disposition home or self-care (01) ==
LOC: HO.HKASLDS 08:20
PROVIDERS: PCP Nurse Practitioner Gerontology; Visit Provider Internal Medicine Rheumatology
DX: M35.3 Polymyalgia rheumatica (principal); C61 Malignant neoplasm of prostate; M11.20 Other chondrocalcinosis, unspecified site; Z79.631 Long term (current) use of antimetabolite agent; Z79.899 Other long term (current) drug therapy; Z79.82 Long term (current) use of aspirin
CPT/HCPCS: 36415; 82565; 84450; 85007; 85027; 85652; 86140

== ENCOUNTER 2025-04-26 08:31 | Outpatient (AMB) | payer OTHER, SELFPAY ==
[2025-04-26 08:40] VITALS: BP 122/74; PULSE 78; O2SAT 98; BMI 22.5
--- NOTE | 2025-04-26 08:40 | MHC.OFFVIS ---
Vital Signs 04/26/25 08:40 Height 5 ft 11 in Weight 161 lb 9.581 oz BMI 22.5 BP 122/74 Blood Pressure Location Rt brachial Position Sitting Pulse 78 Pulse Source Pulse Oximeter Pulse Oximetry (%) 98 Oxygen Delivery Method Room Air Intake Visit Reasons: 3 Months Intake Note: Follow up appt for pmr Accompanied by: Self / Same As Patient Allergies No Known Allergies Allergy (Verified 04/26/25 08:40) HPI HPI 3 Months: Details: Prostectomy Feb 17. He has had bilateral wrist pain in the morning 12/13. No GCA or PMR symptoms. No new joint swelling. Soreness in shoulders is very minimal. He is not waking up with stiffness or shoulder pain. [facility] Medical History (Updated 04/26/25 @ 09:16 by Josiah Gibbons MD) Prostate cancer Polymyalgia Arthropathy of left knee Surgical History (Updated 04/26/25 @ 08:42 by Nicolasa Jacobs CMA) Hx of prostatectomy Hx of tonsillectomy Physical Exam Vital Signs: Last Vital Signs Pulse 78 04/26/25 08:40 BP 122/74 04/26/25 08:40 Pulse Ox 98 04/26/25 08:40 Oxygen Delivery Method Room Air 04/26/25 08:40 BMI result Body Mass Index 22.5 Const Other: General: Comfortable CVS: RRR Respiratory: clear to auscultation bilaterally. Good respiratory effort Skin: No lesions seen MSK: Tender bilateral CMCs. No tenderness of 1st extensor compartment. negative Tom test. No synovitis. Normal range of motion of upper extremities and lower extremities. Assessment & Plan Assessment & Plan (1) PMR (polymyalgia rheumatica): Comment: Relapse disease. Currently controlled on slow taper of prednisone and methotrexate. He has been on prednisone 1 mg daily for a week. Rheumatology history: Diagnosed PMR 04/14/2018 with prednisone tapered off 08/2019. He had relapsed while on low-dose prednisone 10 mg daily. During PMR management he active pseudogout affecting left knee and was started on colchicine and methotrexate 12.5 mg once weekly. In 2023 methotrexate dose was slowly reduced to 7.5 mg once weekly and he relapsed with PMR and was restarted on prednisone 01/2024. Diagnosed with stage II prostate cancer status post prostatectomy February 2025. Code(s): M35.3 - Polymyalgia rheumatica Category: Medical Plan: Continue prednisone 1 mg daily for 3 more weeks then he will discontinue Continue methotrexate 15 mg once weekly Continue folic acid 1 mg daily Labs for drug monitoring on high-risk medication due today He will get flu shot today and hold methotrexate Return to clinic in 3 months (2) Calcium pyrophosphate deposition disease (CPPD): Comment: Affecting left knee. Controlled on colchicine and methotrexate. Code(s): M11.20 - Other chondrocalcinosis, unspecified site Category: Medical Plan: Continue colchicine 0.6 mg daily Continue methotrexate 15 mg once weekly Continue folic acid 1 mg daily Labs for drug monitoring on high-risk medication due Return to clinic in 3 months (3) Other half-way (current) drug therapy: Code(s): Z79.899 - Other cellophaner (current) drug therapy Category: Medical Plan: See above (4) Bilateral thumb pain: Comment: Acute onset of 3 weeks. Suspect osteoarthritis is contributing Code(s): M79.644 - Pain in right finger(s); M79.645 - Pain in left finger(s) Category: Medical Plan: X-ray bilateral hands ordered [facility] splint prescription given to patient Start apply diclofenac gel 1% to affected area q.i.d. PRN pain. Can use oral NSAIDs if diclofenac gel is not effective Return to clinic in three-month Orders: Orders Creatinine Today Z79.899 - Other cellophaner (current) drug therapy Complete Blood Count Auto Diff Today Z79.899 - Other cellophaner (current) drug therapy Alanine Aminotransferase Today Z79.899 - Other cellophaner (current) drug therapy Aspartate Amino Transferase Today Z79.899 - Other half-way (current) drug therapy C Reactive Protein Today Z79.899 - Other cellophaner (current) drug therapy Erythrocyte Sedimentation Rate Today Z79.899 - Other cellophaner (current) drug therapy XR Hand Bilat min 3v Today M18.0 - Bilateral primary osteoarthritis of first carpometacarpal joints Medications: New arm brace (Wrist Brace) As directed Bilateral custom CMC splints Dx: osteoarthritis [facility]MC 2 ea 0RF Refilled methotrexate sodium 15 mg (6 x 2.5 mg) PO QWEEK 72 tabs 0RF 12 weeks Discontinued prednisone Discontinued Reason: Doctor's Order 8 mg (8 x 1 mg) PO DAILY 30 days 240 tabs 0RF Coding Level of Care Code Est Pt Level 4 (96858) Complex EM visit Add On G2211 Diagnoses PMR (polymyalgia rheumatica) M35.3 Calcium pyrophosphate deposition disease (CPPD) M11.20 Other half-way (current) drug therapy Z79.899 Bilateral thumb pain M79.644; M79.645
--- OUTSIDE RECORDS SUMMARY | 2025-04-26 08:50 | XMS_ITS | Encounter Summary ---
Author Organization [facility] Address [address] [place] [address] Care Team Providers Care Flat Sorting Machine Clerk Name Role Phone Sailaja Blackman WILLARD Primary Care Provider [phone] Encounter Details Date Type Department Care Team (Late st Contact Info) Description 09/27/2024 Lab Requisition [facility] - Main Lab [address] [facility] [place] [address] González Cerrato MD [address] [place] [address] Elevated prostate specific antigen (PSA) Social History [...] (09/26/2024) Final Diagnosis A. Prostate, Left Middle [place] Biopsy: Acinar adenocarcinoma, conventional (usual) type, Francisco score 3 + 3 = 6 (Grade group 1). The carcinoma involves approximately 25-30% of the tissue submitted for review and spans approximately 3-4 mm in greatest dimension in a single core. B. Prostate, Left Lateral [place] Biopsy: Acinar adenocarcinoma, conventional (usual) type, Francisco [...] + 4 = 7 (Grade group 2). Dunnigan pattern 4 comprises approximately 10% of the [...] supporting a component of Francisco pattern 4. F. Prostate, Left Lateral Base Biopsy: Acinar adenocarcinoma, conventional (usual) type, Dunnigan score 3 + 4 = 7 (Grade group 2). Dunnigan pattern 4 comprises approximately 20% of the [...] a single core. H. Prostate, Right Middle [place] Biopsy: Benign prostate tissue. I. Prostate, Right Lateral [place] Biopsy: Benign prostate tissue. J. Prostate, Right Middle Middle Biopsy: Benign prostate tissue. K. Prostate, Right Lateral Middle Biopsy: Benign prostate tissue. L. Prostate, Right Middle Base Biopsy: Acinar adenocarcinoma, conventional (usual) type, Dunnigan score 3 + 3 = 6 (Grade group 1). The carcinoma involves less than 10% of the tissue submitted for review and spans less than 1 mm in greatest dimension in a single core. M. Prostate, Right Lateral Base Biopsy: Benign prostate tissue. 5 4:07 PM EDT [facility] Clinical Information Elevated PSA PSA: 4.3 (07/08/24) [id number] 5 4:07 PM EDT [facility] Gross Description A. Prostate, Left Middle [place] Biopsy: Received, properly labeled, are two H and E stained slides and two unstained slides. B. Prostate, Left Lateral [place] Biopsy: Received, properly labeled, are two H [...] two unstained slides. H. Prostate, Right Middle [place] Biopsy: Received, properly labeled, are two H and E stained slides and two unstained slides. I. Prostate, Right Lateral [place] Biopsy: Received, properly labeled, are two H [...] unstained slides. /al 5 4:07 PM EDT [facility] Disclaimer Unless otherwise specified, all tissue is 10% NB formalin fixed and paraffin embedded. Technical pathology services provided by [facility] at [address] [place] [address] [address], [place] [address] (CLIA #[id number]/Mary Petersen MD, Braided Rug Maker) 5 4:07 PM EDT [facility] Tissue Prostate / Unknown [...] LAB PATHOLOGY ORDERABLES Final R esult [facility] [address] [place] [address], documented in this encounter Visit Diagnoses Diagnosis Elevated prostate specific antigen (PSA) documented in this encounter Care Teams Flat Sorting Machine Clerk Relationship Specialty Start Date End Date Sailaja Blackman NP [address] [facility] [place] [address] PCP - General Internal Medicine 11/10/24 documented as of this encounter
--- OUTSIDE RECORDS SUMMARY | 2025-04-26 08:50 | XMS_ITS | Clinical Summary ---
Author Organization [address] [facility] Address [address] [place] [address] Phone Care Team Providers Care Sports Attorney Name Role Phone Sailaja Blackman NP Primary Care Provider [phone] Allergies No known active allergies Medications multivitamin tablet Take 1 tablet by mouth 1 (one) time each day. Active colchicine (COLCRYS) 0.6 mg tablet Take 1 tablet (0.6 mg total) by mouth 1 (one) time each day. Active carvediloL (COREG) 6.25 mg tablet Take 1 tablet (6.25 mg total) by mouth 2 (two) times a day with meals. Active omega 3-nmj-xdc-fish oil (Fish OiL) 1,000 (120-180) mg capsule [...] mouth 1 (one) time each day. Active polyethylene glycol (Golytely) 236-22.74-6.74 -5.86 gram solution Take 4L by mouth once for one dose. May substitue any PEG. Starting at 6PM the night before your procedure drink 1 8oz glasses at your own pace until you complete half of the gallon. Finish 2nd half of the gallon 5 hours before your procedure. 4000 mL 5 Active bisacodyL (DULCOLAX) 5 mg EC tablet Take 2 tablets by mouth right before beginning bowel prep. See instructions provided by the office 2 tablet 5 Active predniSONE (DELTASONE) 1 mg tablet 6 tablets (6 mg total). 5 Active Surgical History Surgery Date Site/Laterality Comments COLONOSCOPY Medical History Medical History Date Comments Polymyalgia rheumatica syndrome (CMS/HCC V24) Hypertension Hyperlipidemia Social History Tobacco Use Types Packs/Day Years Used Date Smoking Tobacco: Never Assessed Interpersonal Safety Answer Date Record ed Physical Abuse Unrecognized value 11/15/2024 Verbal Abuse Unrecognized value 11/15/2024 Sex and Gender Information Value Date Recorded Sex Assigned at Male 11/09/2024 12:07 PM EDT Legal Sex Male 3:39 AM EST Gender Identity Male 11/09/2024 12:07 PM EDT Sexual Orientation Straight 11/09/2024 12 :07 PM EDT Obstetrics History Last Filed Vital Signs Vital Sign Reading Time Taken Comments Blood Pressure 110/78 11/15/2024 2:17 PM EDT Pulse 61 11/15/2024 2:17 PM EDT Temperature 36.2 C (97.1 F) 11/15/2024 1:57 PM EDT Respiratory Rate 15 11/15/2024 2:17 PM EDT Oxygen Saturation 97% 11/15/2024 2:17 PM EDT Inhaled Oxygen Concentration - - Weight 74.8 kg (165 lb) 11/15/2024 1:25 PM EDT Height - - Body Mass Index - - Plan of Treatment Health Maintenance Due Date Last Done Comments RSV Immunization Adult Patients (1 - Risk 50-74 years 1-dose series) 10/28/2013 Pneumococcal Vaccine: 50+ Years (2 of 2 - PCV20 or PCV21) 04/09/2021 04/09/2020 Depression Screening 07/06/2024 Cholesterol Screening (Lipid Panel) 07/08/2024 HIV Screening 07/08/2024 Hepatitis C Screening 07/08/2024 Social Influencers of Health Screening 07/08/2024 Hypertension/CHF/CAD Annual BMP Blood Test 11/15/2024 COVID-19 Vaccine ( season) 2025 04/05/2023, 05/07/2022, 11/20/2021, Additional history exists Influenza Vaccine (#1) 2025 4, 04/05/2023, 04/29/2022, Additional history exists Colorectal Cancer Screening: Colonoscopy 11/15/2029 11/15/2024 DTaP,Tdap,and Td Vaccines (2 - Td or Tdap) 01/22/2032 01/21/2022 Zoster Vaccines Completed 07/17/2020, 04/09/2020 HIB Vaccines Aged Out No longer eligi [...] to complete this topic RSV Immunization Patients Under 20 months Aged Out No longer eligible based on patient's age to complete this topic Varicella Vaccines Aged Out No longer eligible based on patient's age to complete this topic Procedures Procedure Name Priority Date/Time Associated Diagnosis Comments COLONOSCOPY Routine 11/15/2024 1:56 PM EDT Family hx of colon cancer from Last 3 Months or Most Recently Relevant to Health Maintenance Results * COLONOSCOPY Anesthesia - MAC; [facility] ENDOSCOPY (11/15/2024 1:56 PM EDT) Anatomical Region Laterality Modality Other 11/15/2024 1:35 PM EDT Impressions 11/15/2024 1:56 PM EDT - Internal hemorrhoids. - No specimens collected. Recommendation: - Repeat colonoscopy in 5 years for surveillance. - Use fiber, for example Citrucel, Fibercon, Konsyl or Metamucil. Narrative 11/15/2024 1:56 PM EDT [facility] Patient Name: Oleksandr Mancilla Procedure Date: 11/15/2024 1:35 PM Date of : 1965 Age: 59 Gender: Male Note Status: Finalized Attending MD: Kenrick Prater MD, Procedure Date No Time: 11/15/2024 Procedure: Colonoscopy Indications: Family history of colon cancer in a first-degree relative before age 60 years Providers: Kenrick Prater MD Referring MD: Kenrick Prater MD Medicines: Propofol per Anesthesia Complications: No immediate complications. Estimated Blood Loss: Estimated blood loss: none. Procedure: Pre-Anesthesia Assessment: - ASA Grade Assessment: II - A patient with mild systemic disease. After I obtained informed consent, the scope was passed under direct vision. Throughout the procedure, the patient's blood pressure, pulse, and oxygen saturations were monitored continuously.The Colonoscope was introduced through the anus and advanced to the cecum, identified by appendiceal orifice and ileocecal valve. The colonoscopy was performed without difficulty. The patient tolerated the procedure well. The quality of the bowel preparation was excellent. Findings: The perianal and digital rectal examinations were normal. Internal hemorrhoids were found during endoscopy. The hemorrhoids were Grade II (internal hemorrhoids that prolapse but reduce spontaneously). Procedure Code(s): --- Professional --- 11356, Colonoscopy, flexible; diagnostic, including collection of specimen(s) by brushing or washing, when performed (separate procedure) Diagnosis Code(s): --- Professional --- K64.1, Second degree hemorrhoids Z80.0, Family history of malignant neoplasm of digestive organs CPT copyright 2020 [employer]. All rights reserved. The codes documented in this report are preliminary and upon area operations manager review may be revised to meet current compliance requirements. Kenrick Prater MD 11/15/2024 1:56:34 PM This report has been signed electronically.Kenrick Prater MD Number of Addenda: 0 Note Initiated On: 11/15/2024 1:35 PM Scope In: Scope Out: Endoscopy Department at [facility] - [address] [place] [id number] Procedure Note Kenrick Prater MD - 11/15/2024 [facility] Patient Name: Oleksandr Mancilla Procedure Date: 11/15/2024 1:35 PM Date of : 1965 Age: 59 Gender: Male Note Status: Finalized Attending MD: Kenrick Prater MD, Procedure Date No Time: 11/15/2024 Procedure: Colonoscopy Indications: Family history of colon cancer in a first-degree relative before age 60 years Providers: Kenrick Prater MD Referring MD: Kenrick Prater MD Medicines: Propofol per Anesthesia Complications: No immediate complications. Estimated Blood Loss: Estimated blood loss: none. Procedure: Pre-Anesthesia Assessment: - ASA Grade Assessment: II - A patient with mild systemic disease. After I obtained informed consent, the scope was passed under direct vision. Throughout theprocedure, the patient's blood pressure, pulse, and oxygen saturations were monitored continuously.The Colonoscope was introduced through the anus and advanced to the cecum, identified by appendiceal orifice and ileocecal valve. The colonoscopy was performed without difficulty. The patient tolerated the procedure well. The quality of the bowel preparation was excellent. Findings: The perianal and digital rectal examinations were normal. Internal hemorrhoids were found during endoscopy.The hemorrhoids were Grade II (internal hemorrhoidsthat prolapse but reduce spontaneously). Procedure Code(s): --- Professional --- 23339, Colonoscopy, flexible; diagnostic, including collection of specimen(s) by brushing or washing,when performed (separate procedure) Diagnosis Code(s): --- Professional --- K64.1, Second degree hemorrhoids Z80.0, Family history of malignant neoplasm of digestive organs CPT copyright 2020 [employer]. All rights reserved. The codes documented in this report are preliminary and upon area operations manager reviewmay be revised to meet current compliance requirements. Kenrick Prater MD 11/15/2024 1:56:34 PM This report has been signed electronically.Kenrick Prater MD Number of Addenda: 0 Note Initiated On: 11/15/2024 1:35 PM Scope In: Scope Out: Endoscopy Department at [facility] - [address] [place] [id number] IMPRESSION: - Internal hemorrhoids. - No specimens collected. Recommendation: - Repeat colonoscopy in 5 years for surveillance. - Use fiber, for example Citrucel, Fibercon, Konsylor Metamucil. Kenrick Prater MD GI~PROCEDURE ORDERABLES Final Re sult from Last 3 Months or Most Recently Relevant to Health Maintenance Insurance [facility] Care Teams Sports Attorney Relationship Specialty Start Date End Date Sailaja Blackman NP [address] [facility] [place] [address] PCP - General Internal Medicine 11/10/24
== END 2025-04-26 09:15 | disposition home or self-care (01) ==
LOC: HO.RHES 08:31
PROVIDERS: PCP Nurse Practitioner Gerontology; Visit Provider Internal Medicine Rheumatology
DX: M35.3 Polymyalgia rheumatica (principal); M11.20 Other chondrocalcinosis, unspecified site; Z79.899 Other long term (current) drug therapy; M79.644 Pain in right finger(s); M79.645 Pain in left finger(s)
CPT/HCPCS: 99214

== ENCOUNTER 2025-04-26 08:31 | Outpatient (REF) | payer OTHER, SELFPAY ==
[2025-04-26 13:16] LABS: MANUAL DIFF FLAG NO
[2025-04-26 13:29] LABS: Hematocrit 36.5 % (42.0-52.0); Hemoglobin 11.9 g/dl (14.0-18.0); Imm Gran Abs Auto 0.03 X10*3/uL (0.00-0.03); Imm Gran Pct Auto 0.4 % (0.0-0.4); Lymphocytes Absolute Auto 0.9 X10*3/uL (1.2-4.9); Mean Corpuscular HGB Conc 32.6 g/dl (31.0-36.0); Mean Corpuscular Hemoglobin 30.0 pg (27.0-33.0); Mean Corpuscular Volume 91.9 fL (80.0-98.0); NRBC Abs Auto 0.000 X10*3/uL (0.0-0.012); NRBC Pct Auto 0.0 /100WBC (0.0-0.2); Platelet Count 247 X10*3/uL (160-400); Red Blood Count 3.97 X10*6/uL (4.60-5.80); White Blood Count 6.9 X10*3/uL (4.8-10.8)
[2025-04-26 13:57] LABS: Alanine Aminotransferase 23 U/L (0-40); Aspartate Amino Transferase 23 U/L (5-37); Estimated Glomerular Filt Rate > 60
== END 2025-04-26 08:32 | disposition home or self-care (01) ==
LOC: HO.HKASLDS 08:31
PROVIDERS: PCP Nurse Practitioner Gerontology; Visit Provider Internal Medicine Rheumatology
DX: M35.3 Polymyalgia rheumatica (principal); M11.20 Other chondrocalcinosis, unspecified site; M79.644 Pain in right finger(s); M79.645 Pain in left finger(s); Z51.81 Encounter for therapeutic drug level monitoring; Z79.631 Long term (current) use of antimetabolite agent; Z79.899 Other long term (current) drug therapy
CPT/HCPCS: 36415; 82565; 84450; 84460; 85025; 85652; 86140

== ENCOUNTER 2025-05-12 11:39 | Outpatient (REF) | payer OTHER, SELFPAY ==
--- OUTSIDE RECORDS SUMMARY | 2025-05-12 14:08 | XMS_ITS | Clinical Summary ---
Author Organization 175 [facility] Address [address] [place] [address] Phone Care Team Providers Care Rack Pusher Name Role Phone Sailaja Blackman NP Primary Care Provider [phone] Allergies No known active allergies Medications multivitamin tablet Take 1 tablet by mouth 1 (one) time each day. Active colchicine (COLCRYS) 0.6 mg tablet Take 1 tablet (0.6 mg total) by mouth 1 (one) time each day. Active carvediloL (COREG) 6.25 mg tablet Take 1 tablet (6.25 mg total) by mouth 2 (two) times a day with meals. Active omega 3-fay-zcc-fish oil (Fish OiL) 1,000 (120-180) mg capsule [...] Maintenance Results * COLONOSCOPY Anesthesia - MAC; [facility] ENDOSCOPY (11/15/2024 1:56 PM EDT) Anatomical Region Laterality Modality Other 11/15/2024 1:35 PM EDT Impressions 11/15/2024 1:56 PM EDT - Internal hemorrhoids. - No specimens collected. Recommendation: - Repeat colonoscopy in 5 years for surveillance. - Use fiber, for example Citrucel, Fibercon, Konsyl or Metamucil. Narrative 11/15/2024 1:56 PM EDT [facility] GI Patient Name: Oleksandr Mancilla [...] reduce spontaneously). Procedure Code(s): --- Professional --- 79469, Colonoscopy, flexible; diagnostic, including collection of specimen(s) by brushing or washing, when performed (separate procedure) Diagnosis Code(s): --- Professional --- K64.1, Second degree hemorrhoids Z80.0, Family history of malignant neoplasm of digestive organs CPT copyright 2020 [employer]. All rights reserved. The codes documented in this report are preliminary and upon supervisor tank cleaning review may be revised to meet current compliance requirements. Kenrick Prater MD 11/15/2024 1:56:34 PM This report has been signed electronically.Kenrick Prater MD Number of Addenda: 0 Note Initiated On: 11/15/2024 1:35 PM Scope In: Scope Out: Endoscopy Department at [facility] - [address] [place] [phone] Procedure Note Kenrick Prater MD - 11/15/2024 [facility] GI Patient Name: Oleksandr Mancilla [...] reduce spontaneously). Procedure Code(s): --- Professional --- 21943, Colonoscopy, flexible; diagnostic, including collection of specimen(s) by brushing or washing,when performed (separate procedure) Diagnosis Code(s): --- Professional --- K64.1, Second degree hemorrhoids Z80.0, Family history of malignant neoplasm of digestive organs CPT copyright 2020 [employer]. All rights reserved. The codes documented in this report are preliminary and upon supervisor tank cleaning reviewmay be revised to meet current compliance requirements. Kenrick Prater MD 11/15/2024 1:56:34 PM This report has been signed electronically.Kenrick Prater MD Number of Addenda: 0 Note Initiated On: 11/15/2024 1:35 PM Scope In: Scope Out: Endoscopy Department at [facility] - [address] [place] [phone] IMPRESSION: - Internal hemorrhoids. - No specimens collected. Recommendation: - Repeat colonoscopy in 5 years for surveillance. - Use fiber, for example Citrucel, Fibercon, Konsylor Metamucil. Kenrick Prater MD GI~PROCEDURE ORDERABLES Final Re sult from Last 3 Months or Most Recently Relevant to Health Maintenance Insurance [facility] Care Teams Rack Pusher Relationship Specialty Start Date End Date Sailaja Blackman NP [address] [facility] [address] PCP - General Internal Medicine 11/10/24
--- OUTSIDE RECORDS SUMMARY | 2025-05-12 14:08 | XMS_ITS | Encounter Summary ---
Author Organization [facility] Address [address] [place] [address] Care Team Providers Care System Analyst Name Role Phone Sailaja Blackman WILLARD Primary Care Provider [phone] Encounter Details Date Type Department Care Team (Late st Contact Info) Description 09/27/2024 Lab Requisition [facility] - Main Lab [address] [facility] [place] [address] González Cerrato MD [address] [place] [address] Elevated prostate specific antigen (PSA) Social History [...] (09/26/2024) Final Diagnosis A. Prostate, Left Middle [place] Biopsy: Acinar adenocarcinoma, conventional (usual) type, Francisco score 3 + 3 = 6 (Grade group 1). The carcinoma involves approximately 25-30% of the tissue submitted for review and spans approximately 3-4 mm in greatest dimension in a single core. B. Prostate, Left Lateral [place] Biopsy: Acinar adenocarcinoma, conventional (usual) type, Francisco [...] + 4 = 7 (Grade group 2). [place] pattern 4 comprises approximately 10% of the [...] Base Biopsy: Acinar adenocarcinoma, conventional (usual) type, [place] score 3 + 4 = 7 (Grade group 2). [place] pattern 4 comprises approximately 20% of the [...] a single core. H. Prostate, Right Middle [place] Biopsy: Benign prostate tissue. I. Prostate, Right Lateral [place] Biopsy: Benign prostate tissue. J. Prostate, Right Middle [place] Biopsy: Benign prostate tissue. K. Prostate, Right Lateral [place] Biopsy: Benign prostate tissue. L. Prostate, Right Middle [place] Biopsy: Acinar adenocarcinoma, conventional (usual) type, [place] score 3 + 3 = 6 (Grade group 1). The carcinoma involves less than 10% of the tissue submitted for review and spans less than 1 mm in greatest dimension in a single core. M. Prostate, Right Lateral [place] Biopsy: Benign prostate tissue. 5 4:07 PM EDT [facility] Clinical Information Elevated PSA PSA: 4.3 (07/08/24) [id number] 5 4:07 PM EDT [facility]) [facility] Gross Description A. Prostate, Left Middle [place] Biopsy: Received, properly labeled, are two H and E stained slides and two unstained slides. B. Prostate, Left Lateral [place] Biopsy: Received, properly labeled, are two H [...] two unstained slides. H. Prostate, Right Middle [place] Biopsy: Received, properly labeled, are two H and E stained slides and two unstained slides. I. Prostate, Right Lateral [place] Biopsy: Received, properly labeled, are two H [...] unstained slides. /al 5 4:07 PM EDT [facility] Disclaimer Unless otherwise specified, all tissue is 10% NB formalin fixed and paraffin embedded. Technical pathology services provided by [facility] at [address] [place] [address] [address], [place] [address] (CLIA #[id number]/Mary Petersen MD, Certification Technician) 5 4:07 PM EDT [facility] Tissue Prostate / Unknown 09/26/20242024 [...] MD LAB PATHOLOGY ORDERABLES Final R esult [facility] [address] [place] [address], documented in this encounter Visit Diagnoses Diagnosis Elevated prostate specific antigen (PSA) documented in this encounter Care Teams System Analyst Relationship Specialty Start Date End Date Sailaja Blackman NP [address] [facility] [place] [address] PCP - General Internal Medicine 11/10/24 documented as of this encounter
== END 2025-05-12 11:40 | disposition home or self-care (01) ==
LOC: HO.HKASLDS 11:39
PROVIDERS: PCP Nurse Practitioner; Visit Provider Internal Medicine Rheumatology
DX: Z79.899 Other long term (current) drug therapy (principal)
CPT/HCPCS: 36415; 85652; 86140

== ENCOUNTER 2025-06-10 10:27 | Outpatient (REF) | payer OTHER, SELFPAY ==
--- NOTE | ~2025-06-10 | XR_ITS ---
EXAMINATION: XR HAND 3 VIEWS BILATERAL HISTORY: M18.0 - Bilateral primary osteoarthritis of first carpometacarpal joints COMPARISON: There are no prior studies available for comparison. FINDINGS: Six views of the bilateral hands are submitted. Osseous mineralization is normal. A well-corticated osseous density adjacent to the left ulnar styloid may be the result of old trauma. There is no acute fracture or dislocation. There is mild degenerative change of the 1st carpometacarpal joints of both hands. The soft tissues are unremarkable. XR/XR Hand Bilat min 3v IMPRESSION: Mild degenerative change of the 1st carpometacarpal joints of both hands. Electronically signed by: Bruno Alvarado MD 06/12/2025 08:23 AM NAUN
--- OUTSIDE RECORDS SUMMARY | 2025-06-10 10:31 | XMS_ITS | Clinical Summary ---
Author Organization 175 [facility] Address [address] [place] [address] Phone Care Team Providers Care Short Story Writer Name Role Phone Sailaja Blackman NP Primary Care Provider [phone] Allergies No known active allergies Medications multivitamin tablet Take 1 tablet by mouth 1 (one) time each day. Active colchicine (COLCRYS) 0.6 mg tablet Take 1 tablet (0.6 mg total) by mouth 1 (one) time each day. Active carvediloL (COREG) 6.25 mg tablet Take 1 tablet (6.25 mg total) by mouth 2 (two) times a day with meals. Active omega 7-wjo-wlm-fish oil (Fish OiL) 1,000 (120-180) mg capsule [...] Maintenance Results * COLONOSCOPY Anesthesia - MAC; [facility] ENDOSCOPY (11/15/2024 1:56 PM EDT) Anatomical Region Laterality Modality Other 11/15/2024 1:35 PM EDT Impressions 11/15/2024 1:56 PM EDT - Internal hemorrhoids. - No specimens collected. Recommendation: - Repeat colonoscopy in 5 years for surveillance. - Use fiber, for example Citrucel, Fibercon, Konsyl or Metamucil. Narrative 11/15/2024 1:56 PM EDT [facility] GI Patient Name: Oleksandr Mancilla [...] reduce spontaneously). Procedure Code(s): --- Professional --- 96757, Colonoscopy, flexible; diagnostic, including collection of specimen(s) by brushing or washing, when performed (separate procedure) Diagnosis Code(s): --- Professional --- K64.1, Second degree hemorrhoids Z80.0, Family history of malignant neoplasm of digestive organs CPT copyright 2020 [employer] [employer]. All rights reserved. The codes documented in this report are preliminary and upon medical insurance coder review may be revised to meet current compliance requirements. Kenrick Prater MD 11/15/2024 1:56:34 PM This report has been signed electronically.Kenrick Prater MD Number of Addenda: 0 Note Initiated On: 11/15/2024 1:35 PM Scope In: Scope Out: Endoscopy Department at [facility] - [address] [place] [phone] Procedure Note Kenrick Prater MD - 11/15/2024 [facility] GI Patient Name: Oleksandr Mancilla [...] reduce spontaneously). Procedure Code(s): --- Professional --- 06584, Colonoscopy, flexible; diagnostic, including collection of specimen(s) by brushing or washing,when performed (separate procedure) Diagnosis Code(s): --- Professional --- K64.1, Second degree hemorrhoids Z80.0, Family history of malignant neoplasm of digestive organs CPT copyright 2020 [employer]. All rights reserved. The codes documented in this report are preliminary and upon medical insurance coder reviewmay be revised to meet current compliance requirements. Kenrick Prater MD 11/15/2024 1:56:34 PM This report has been signed electronically.Kenrick Prater MD Number of Addenda: 0 Note Initiated On: 11/15/2024 1:35 PM Scope In: Scope Out: Endoscopy Department at [facility] - [address] [place] [phone] IMPRESSION: - Internal hemorrhoids. - No specimens collected. Recommendation: - Repeat colonoscopy in 5 years for surveillance. - Use fiber, for example Citrucel, Fibercon, Konsylor Metamucil. Kenrick Prater MD GI~PROCEDURE ORDERABLES Final Re sult from Last 3 Months or Most Recently Relevant to Health Maintenance Insurance [facility] Care Teams Short Story Writer Relationship Specialty Start Date End Date Sailaja Blackman NP [address] [facility] [place] [address] PCP - General Internal Medicine 11/10/24
--- OUTSIDE RECORDS SUMMARY | 2025-06-10 10:31 | XMS_ITS | Encounter Summary ---
Author Organization [facility] Address [address] [place] [address] Care Team Providers Care Arborer Name Role Phone Sailaja Blackman WILLARD Primary Care Provider [phone] Encounter Details Date Type Department Care Team (Late st Contact Info) Description 09/27/2024 Lab Requisition [facility] - Main Lab 299 [facility] [place] [address] González Cerrato MD [address] [place] [address] Elevated prostate specific antigen (PSA) Social History [...] (09/26/2024) Final Diagnosis A. Prostate, Left Middle [place] Biopsy: Acinar adenocarcinoma, conventional (usual) type, Francisco score 3 + 3 = 6 (Grade group 1). The carcinoma involves approximately 25-30% of the tissue submitted for review and spans approximately 3-4 mm in greatest dimension in a single core. B. Prostate, Left Lateral [place] Biopsy: Acinar adenocarcinoma, conventional (usual) type, Francisco [...] + 4 = 7 (Grade group 2). [place] pattern 4 comprises approximately 10% of the [...] Base Biopsy: Acinar adenocarcinoma, conventional (usual) type, [place] score 3 + 4 = 7 (Grade group 2). [place] pattern 4 comprises approximately 20% of the [...] a single core. H. Prostate, Right Middle [place] Biopsy: Benign prostate tissue. I. Prostate, Right Lateral [place] Biopsy: Benign prostate tissue. J. Prostate, Right Middle [place] Biopsy: Benign prostate tissue. K. Prostate, Right Lateral [place] Biopsy: Benign prostate tissue. L. Prostate, Right Middle [place] Biopsy: Acinar adenocarcinoma, conventional (usual) type, [place] score 3 + 3 = 6 (Grade group 1). The carcinoma involves less than 10% of the tissue submitted for review and spans less than 1 mm in greatest dimension in a single core. M. Prostate, Right Lateral [place] Biopsy: Benign prostate tissue. 5 4:07 PM EDT [facility] at 1607 EDT Clinical Information Elevated PSA PSA: 4.3 (07/08/24) [id number] 5 4:07 PM EDT [facility] Gross Description A. Prostate, Left Middle [place] Biopsy: Received, properly labeled, are two H and E stained slides and two unstained slides. B. Prostate, Left Lateral [place] Biopsy: Received, properly labeled, are two H [...] two unstained slides. H. Prostate, Right Middle [place] Biopsy: Received, properly labeled, are two H and E stained slides and two unstained slides. I. Prostate, Right Lateral [place] Biopsy: Received, properly labeled, are two H [...] paraffin embedded. Technical pathology services provided by [facility] at [address] [place] [address] [address], [place] [address] (CLIA #[id number]/Mary Petersen MD, Construction Equipment Technician) 5 4:07 PM EDT [facility] [facility] [...] LAB PATHOLOGY ORDERABLES Final R esult [facility] [address] [place] [address], documented in this encounter Visit Diagnoses Diagnosis Elevated prostate specific antigen (PSA) documented in this encounter Care Teams Arborer Relationship Specialty Start Date End Date Sailaja Blackman NP [address] [facility] [place] [address] PCP - General Internal Medicine 11/10/24 documented as of this encounter
== END 2025-06-10 10:28 | disposition home or self-care (01) ==
LOC: HO.HMGCX 10:27
PROVIDERS: PCP Nurse Practitioner; Visit Provider Internal Medicine Rheumatology
DX: M18.0 Bilateral primary osteoarthritis of first carpometacarpal joints (principal)
CPT/HCPCS: 73130

== ENCOUNTER → 2025-06-10 10:33 | Outpatient (BNV) | payer OTHER, SELFPAY | PROVIDERS: PCP Nurse Practitioner; Visit Provider Radiology Diagnostic Radiology | DX: M18.0 Bilateral primary osteoarthritis of first carpometacarpal joints (principal) | CPT/HCPCS: 73130 ==

== ENCOUNTER 2025-06-22 09:01 | Outpatient (REF) | payer OTHER, SELFPAY ==
--- OUTSIDE RECORDS SUMMARY | 2025-06-22 10:10 | XMS_ITS | Clinical Summary ---
Author Organization 175 [facility] Address [address] [place] [address] Phone Care Team Providers Care Children'S Choir Director Name Role Phone Sailaja Blackman NP Primary Care Provider [phone] Allergies No known active allergies Medications multivitamin tablet Take 1 tablet by mouth 1 (one) time each day. Active colchicine (COLCRYS) 0.6 mg tablet Take 1 tablet (0.6 mg total) by mouth 1 (one) time each day. Active carvediloL (COREG) 6.25 mg tablet Take 1 tablet (6.25 mg total) by mouth 2 (two) times a day with meals. Active omega 0-yfc-wyb-fish oil (Fish OiL) 1,000 (120-180) mg capsule [...] Orientation Straight 11/09/2024 12 :07 PM EDT Last Filed Vital Signs Vital Sign Reading [...] Maintenance Results * COLONOSCOPY Anesthesia - MAC; [facility] ENDOSCOPY (11/15/2024 1:56 PM EDT) Anatomical Region Laterality Modality Other 11/15/2024 1:35 PM EDT Impressions 11/15/2024 1:56 PM EDT - Internal hemorrhoids. - No specimens collected. Recommendation: - Repeat colonoscopy in 5 years for surveillance. - Use fiber, for example Citrucel, Fibercon, Konsyl or Metamucil. Narrative 11/15/2024 1:56 PM EDT [facility] GI Patient Name: Oleksandr Mancilla [...] reduce spontaneously). Procedure Code(s): --- Professional --- 82708, Colonoscopy, flexible; diagnostic, including collection of specimen(s) by brushing or washing, when performed (separate procedure) Diagnosis Code(s): --- Professional --- K64.1, Second degree hemorrhoids Z80.0, Family history of malignant neoplasm of digestive organs CPT copyright 2020 [employer] [employer]. All rights reserved. The codes documented in this report are preliminary and upon log pond worker review may be revised to meet current compliance requirements. Kenrick Prater MD 11/15/2024 1:56:34 PM This report has been signed electronically.Kenrick Prater MD Number of Addenda: 0 Note Initiated On: 11/15/2024 1:35 PM Scope In: Scope Out: Endoscopy Department at [facility] - [address] [place] [phone] Procedure Note Kenrick Prater MD - 11/15/2024 [facility] GI Patient Name: Oleksandr Mancilla [...] reduce spontaneously). Procedure Code(s): --- Professional --- 72249, Colonoscopy, flexible; diagnostic, including collection of specimen(s) by brushing or washing,when performed (separate procedure) Diagnosis Code(s): --- Professional --- K64.1, Second degree hemorrhoids Z80.0, Family history of malignant neoplasm of digestive organs CPT copyright 2020 [employer]. All rights reserved. The codes documented in this report are preliminary and upon log pond worker reviewmay be revised to meet current compliance requirements. Kenrick Prater MD 11/15/2024 1:56:34 PM This report has been signed electronically.Kenrick Prater MD Number of Addenda: 0 Note Initiated On: 11/15/2024 1:35 PM Scope In: Scope Out: Endoscopy Department at [facility] - [address] [place] [phone] IMPRESSION: - Internal hemorrhoids. - No specimens collected. Recommendation: - Repeat colonoscopy in 5 years for surveillance. - Use fiber, for example Citrucel, Fibercon, Konsylor Metamucil. Kenrick Prater MD GI~PROCEDURE ORDERABLES Final Re sult from Last 3 Months or Most Recently Relevant to Health Maintenance Insurance [facility] Care Teams Children'S Choir Director Relationship Specialty Start Date End Date Sailaja Blackman NP [address] [place] [address] [place] [address] PCP - General Internal Medicine 11/10/24
--- OUTSIDE RECORDS SUMMARY | 2025-06-22 10:10 | XMS_ITS | Encounter Summary ---
Author Organization [facility] Address [address] [place] [address] Care Team Providers Care Seafood Team Member Name Role Phone Sailaja Blackman WILLARD Primary Care Provider [phone] Encounter Details Date Type Department Care Team (Late st Contact Info) Description 09/27/2024 Lab Requisition [facility] - Main Lab [address] [facility] [place] [address] González Cerrato MD [address] [place] [address] Elevated prostate specific antigen (PSA) Social History [...] (09/26/2024) Final Diagnosis A. Prostate, Left Middle [place] Biopsy: Acinar adenocarcinoma, conventional (usual) type, Francisco score 3 + 3 = 6 (Grade group 1). The carcinoma involves approximately 25-30% of the tissue submitted for review and spans approximately 3-4 mm in greatest dimension in a single core. B. Prostate, Left Lateral [place] Biopsy: Acinar adenocarcinoma, conventional (usual) type, [place] score 3 + 3 = 6 (Grade group 1). The carcinoma involves 30-35% of the tissue submitted for review and spans approximately 4 mm in greatest dimension in a single core. Perineural invasion is present. C. Prostate, Left Middle [place] Biopsy: Acinar adenocarcinoma, conventional (usual) type, [place] score 3 + 3 = 6 (Grade [...] Base Biopsy: Acinar adenocarcinoma, conventional (usual) type, [place] score 3 + 4 = 7 (Grade group 2). [place] pattern 4 comprises approximately 20% of the [...] Base Biopsy: Acinar adenocarcinoma, conventional (usual) type, [place] score 3 + 4 = 7 (Grade group 2). [place] pattern 4 comprises approximately 20% of the [...] a single core. H. Prostate, Right Middle [place] Biopsy: Benign prostate tissue. I. Prostate, Right Lateral [place] Biopsy: Benign prostate tissue. J. Prostate, Right [...] Benign prostate tissue. 5 4:07 PM EDT [facility] at 1607 EDT Clinical Information Elevated PSA PSA: 4.3 (07/08/24) [id number] 5 4:07 PM EDT [facility] Gross Description A. Prostate, Left Middle [place] Biopsy: Received, properly labeled, are two H and E stained slides and two unstained slides. B. Prostate, Left Lateral [place] Biopsy: Received, properly labeled, are two H [...] two unstained slides. H. Prostate, Right Middle [place] Biopsy: Received, properly labeled, are two H and E stained slides and two unstained slides. I. Prostate, Right Lateral [place] Biopsy: Received, properly labeled, are two H [...] unstained slides. /al 5 4:07 PM EDT [facility] Disclaimer Unless otherwise specified, all tissue is 10% NB formalin fixed and paraffin embedded. Technical pathology services provided by [facility] at [address] [place] [address] [address], [place] [address] (CLIA #[id number]/Mary Petersen MD, Pearl Fisherman) 5 4:07 PM EDT [facility] Tissue Prostate / Unknown [...] MD LAB PATHOLOGY ORDERABLES Final R esult [facility]) [facility] [address] [place] [address], documented in this encounter Visit Diagnoses Diagnosis Elevated prostate specific antigen (PSA) documented in this encounter Care Teams Seafood Team Member Relationship Specialty Start Date End Date Sailaja Blackman NP [address] [facility] [place] [address] PCP - General Internal Medicine 11/10/24 documented as of this encounter
== END 2025-06-22 09:02 | disposition home or self-care (01) ==
LOC: HO.HKASLDS 09:01
PROVIDERS: PCP Nurse Practitioner; Visit Provider Internal Medicine Rheumatology
DX: Z79.899 Other long term (current) drug therapy (principal)
CPT/HCPCS: 36415; 85652; 86140